=== PATIENT | female | born 1980 | race Caucasian/White ===

== ENCOUNTER → 2017-11-26 | Outpatient (CLI) | payer OTHER ==
[2017-11-29 08:55] LABS: Source VAG/CERVIX
[2017-11-29 09:27] LABS: HPV Genotype 16 Not Detected (NOTDET); HPV Genotype 18 Not Detected (NOTDET); HPV High Risk Other Not Detected (NOTDET)
== END | disposition home or self-care (01) ==
LOC: LAB 10:42 → LAB SHORT 10:42
PROVIDERS: Advanced Practice Midwife
DX: Z01.419 Encounter for gynecological examination (general) (routine) without abnormal findings (principal); Z11.3 Encounter for screening for infections with a predominantly sexual mode of transmission
CPT/HCPCS: 87491; 87591; 87624; 87661; G0123

== ENCOUNTER 2020-11-24 04:19 | Emergency (ER) | payer OTHER ==
[~2020-11-24] VITALS: Ht 170.2 cm; Wt 88.9 kg
[2020-11-24] MEDS ORDERED: EUTHYROX88 MCG PO (04:36)
== END 2020-11-24 05:24 | disposition home or self-care (01) ==
LOC: ER 04:19
DX: S01.81XA Laceration without foreign body of other part of head, initial encounter (principal); Z79.899 Other long term (current) drug therapy; Z23 Encounter for immunization; W22.8XXA Striking against or struck by other objects, initial encounter; Y92.89 Other specified places as the place of occurrence of the external cause; Y99.0 Civilian activity done for income or pay
CPT/HCPCS: 12011; 90471; 99282-25

== ENCOUNTER 2021-03-26 13:43 | Emergency (ER) | payer OTHER ==
[~2021-03-26] VITALS: Ht 167.6 cm; Wt 86.2 kg
[~2021-03-26 13:43] MED LIST: EUTHYROX88 MCG PO
[2021-03-26 14:16] LABS: BASOPHILS ABSOLUTE AUTO 0.07 K/mm3 (0.00-0.23); BASOPHILS PERCENT AUTO 1 % (0-2); EOSINOPHILS ABSOLUTE AUTO 0.23 K/mm3 (0.00-0.68); EOSINOPHILS PERCENT AUTO 2 % (0-6); Hematocrit 35.6 % (33.0-51.0); Hemoglobin 11.8 g/dL (11.5-16.0); IMMATURE GRAN ABSOLUTE AUTO 0.03 K/mm3 (0.00-0.10); IMMATURE GRAN PERCENT AUTO 0 % (0-1); LYMPHOCYTES ABSOLUTE AUTO 2.75 K/mm3 (0.84-5.20); LYMPHOCYTES PERCENT AUTO 26 % (21-46); MONOCYTES ABSOLUTE AUTO 0.93 K/mm3 (0.16-1.47); MONOCYTES PERCENT AUTO 9 % (4-13); Mean Corpuscular HGB 29.9 pg (26.0-34.0); Mean Corpuscular HGB Conc 33.1 g/dL (31.5-36.5); Mean Corpuscular Volume 90 fL (80-100); Mean Platelet Volume 9.3 fL (9.1-12.4); NEUTROPHILS ABSOLUTE AUTO 6.52 K/mm3 (1.96-9.15); NEUTROPHILS PERCENT AUTO 62 % (41-73); Platelet Count 287 K/mm3 (150-400); RDW Coefficient Variation 12.5 % (11.7-14.2); RDW Standard Deviation 41.2 fL (35.1-46.3); Red Blood Cell Count 3.95 M/mm3 (3.80-5.20); White Blood Cell Count 10.53 K/mm3 (4.00-11.30)
[2021-03-26 14:44] LABS: Alanine Aminotransfer (ALT/SGP 16 U/L (12-78); Albumin, Blood 3.7 g/dL (3.4-5.0); Alk Phos 44 U/L (50-136); Anion Gap 5 mmol/L (6-16); Aspartate Aminotrans (AST/SGOT 10 U/L (12-37); Bilirubin, Total 0.3 mg/dL (0.1-1.0); Blood Urea Nitrogen 19 mg/dL (8-24); CO2, Blood 30 mmol/L (21-32); Calcium, Blood 8.7 mg/dL (8.5-10.1); Chloride, Blood 105 mmol/L (98-108); Creatinine, Blood 0.83 mg/dL (0.40-1.00); Globulin, Blood 3.6 g/dL (2.2-4.0); Glomerular Filtration Rate >60 (60-); Glucose, Blood 79 mg/dL (70-99); Potassium, Blood 3.4 mmol/L (3.5-5.5); Sodium, Blood 140 mmol/L (136-145); Total Protein, Blood 7.3 g/dL (6.4-8.2); Troponin I <0.015 ng/mL (0.000-0.040)
== END 2021-03-26 16:41 | disposition home or self-care (01) ==
LOC: ER 13:43
PROVIDERS: Emergency Medicine
DX: R07.9 Chest pain, unspecified (principal); R20.0 Anesthesia of skin; Z79.890 Hormone replacement therapy; Z96.82 Presence of neurostimulator
CPT/HCPCS: 71046; 80053; 84484; 85025; 93005; 93010; 99285-25

== ENCOUNTER 2022-10-25 15:36 | Emergency (ER) | payer OTHER ==
[~2022-10-25] VITALS: Ht 170.2 cm; Wt 90.7 kg
[2022-10-25] MEDS ORDERED: CRUTCH4 XX (16:30)
== END 2022-10-25 16:45 | disposition home or self-care (01) ==
LOC: ER 15:36
DX: S93.402A Sprain of unspecified ligament of left ankle, initial encounter (principal); W01.0XXA Fall on same level from slipping, tripping and stumbling without subsequent striking against object, initial encounter; Z79.899 Other long term (current) drug therapy
CPT/HCPCS: 73610

== ENCOUNTER 2024-09-06 17:44 | Emergency (ER) | payer OTHER ==
[~2024-09-06] VITALS: Ht 167.6 cm; Wt 68.0 kg
[~2024-09-06 17:44] MED LIST changes: +CRUTCH4 XX
[2024-09-06 18:06] VITALS: BP 136/96
== END 2024-09-06 18:09 | disposition home or self-care (01) ==
LOC: ER 17:44
DX: M54.2 Cervicalgia (principal); E03.9 Hypothyroidism, unspecified; V89.2XXA Person injured in unspecified motor-vehicle accident, traffic, initial encounter; Z79.899 Other long term (current) drug therapy
CPT/HCPCS: 99282

== ENCOUNTER → 2024-10-13 | Outpatient (CLI) | payer OTHER ==
[2024-10-13 18:55] LABS: BASOPHILS ABSOLUTE AUTO 0.06 K/mm3 (0.00-0.23); BASOPHILS PERCENT AUTO 1 % (0-2); EOSINOPHILS ABSOLUTE AUTO 0.14 K/mm3 (0.00-0.68); EOSINOPHILS PERCENT AUTO 2 % (0-6); Hematocrit 35.3 % (33.0-51.0); Hemoglobin 11.8 g/dL (11.5-16.0); IMMATURE GRAN ABSOLUTE AUTO 0.02 K/mm3 (0.00-0.10); IMMATURE GRAN PERCENT AUTO 0 % (0-1); LYMPHOCYTES ABSOLUTE AUTO 2.74 K/mm3 (0.84-5.20); LYMPHOCYTES PERCENT AUTO 29 % (21-46); MONOCYTES ABSOLUTE AUTO 0.84 K/mm3 (0.16-1.47); MONOCYTES PERCENT AUTO 9 % (4-13); Mean Corpuscular HGB 29.2 pg (26.0-34.0); Mean Corpuscular HGB Conc 33.4 g/dL (31.5-36.5); Mean Corpuscular Volume 87 fL (80-100); Mean Platelet Volume 9.5 fL (9.1-12.4); NEUTROPHILS ABSOLUTE AUTO 5.71 K/mm3 (1.96-9.15); NEUTROPHILS PERCENT AUTO 60 % (41-73); Platelet Count 344 K/mm3 (150-400); RDW Coefficient Variation 12.7 % (11.7-14.2); RDW Standard Deviation 40.3 fL (35.1-46.3); Red Blood Cell Count 4.04 M/mm3 (3.80-5.20); White Blood Cell Count 9.51 K/mm3 (4.00-11.30)
[2024-10-13 19:15] LABS: Bun/Creatinine Ratio 29.5 (12.0-20.0); Calcium, Blood 9.5 mg/dL (8.5-10.1); Creatinine, Blood 0.68 mg/dL (0.40-1.00); Potassium, Blood 3.8 mmol/L (3.5-5.5)
== END ==
LOC: LAB SHORT 17:18 → LAB 17:18
PROVIDERS: Orthopaedic Surgery Sports Medicine
DX: Z01.812 Encounter for preprocedural laboratory examination (principal); M25.561 Pain in right knee
CPT/HCPCS: 36415; 80048; 85025

== ENCOUNTER 2024-11-08 07:31 | Day surgery (SDC) | payer OTHER ==
[~2024-11-08] VITALS: Ht 167.6 cm; Wt 99.5 kg
[~2024-11-08 07:31] MED LIST changes: +EPINEPhrine HCl 1 MG/ML 1ML Amp ONE; +LEVSOD112 PO; +Lidocaine 1%-Epineph 1:100000 20 ML MDV ONE
[2024-11-08] MEDS ORDERED: propofoL 20 ML IV ONE ×3 (07:49→09:02)
[2024-11-08] MEDS ORDERED: FentaNYL Citrate 50 MCG/ML 2 ML Injection ONE (07:49)
[2024-11-08] MEDS ORDERED: Midazolam HCl 1MG / ML 2ML Vial ONE (07:49)
[2024-11-08] MEDS ORDERED: Ketorolac Tromethamine 30mg Vial ONE (07:52)
[2024-11-08] MEDS ORDERED: Ondansetron HCl 2 MG / ML 2ML Vial ONE (07:52)
[2024-11-08] MEDS ORDERED: Dexamethasone Sod Phos 10 MG/ML 1ML VIAL ONE (07:52)
[2024-11-08] MEDS ORDERED: Bupivacaine HCl 0.25% 30 ML Injection ONE (07:53)
[2024-11-08] MEDS ORDERED: THERA-D2000 UNIT PO (08:04)
[2024-11-08] MEDS ORDERED: GABA300 PO (08:05)
[2024-11-08] MEDS ORDERED: NAPR220 PO (08:06)
[2024-11-08] MEDS ORDERED: Percocet 10-321 EACH PO (08:07)
[2024-11-08] MEDS ORDERED: ACET500 PO (08:07)
[2024-11-08] MEDS ORDERED: Percocet 5-3251 EACH PO (08:08)
[2024-11-08] MEDS ORDERED: NS 0 ML IV ONE ×3 (08:14→08:17)
[2024-11-08] MEDS ORDERED: CeFAZolin Sodium 2,000 MG VIAL ONE (08:14)
[2024-11-08] MEDS ORDERED: Lactated Ringer's 1,000 ML IV ONE ×2 (08:18→10:28)
[2024-11-08] MEDS ORDERED: Tranexamic Acid 100 ML IV ONE (08:20)
--- NOTE | 2024-11-08 08:53 | NUR ---
11/08/24 0853 JP BOWER TIMEOUT AT BEDSIDE FOR NERVE BLOCK WITH THIS RN, ANESTHESIA AND PT. SPO2 MONITORED T/O PROCEDURE, REMAINED WNL W/ PT ON 2L NC. NERVE BLOCK COMPLETED W/O COMPLICATIONS.
[2024-11-08] MEDS ORDERED: HYDROmorphone HCl/Pf 1MG SYR ONE (09:20)
--- NOTE | 2024-11-08 09:29 | NUR ---
11/08/24 0929 Elsa Crockett PT IV INFILTRATED AT INDUCTION, NEW IV PLACED BY DR. BANGURA RT AC
--- NOTE | 2024-11-08 11:12 | NUR ---
11/08/24 1112 Natalia Kulkarni PT RESTING QUIETLY IN CART W/O COMPLAINT. VSS, ON RA. PT STATES R KNEE IS SORE, DENIES NAUSEA. NO VISIBLE SIGNS OF DISTRESS NOTED.
--- NOTE | 2024-11-08 11:20 | NUR ---
11/08/24 1120 Natalia Kulkarni PT TRANSFERS TO SDU. PT DROWSY, BUT AROUSES EASILY TO NAME & FOLLOWS COMMANDS. VSS, ON RA. POLAR PACK HOOKED UP. NO VISIBLE SIGNS OF DISTRESS NOTED.
[2024-11-08] MEDS ORDERED: OxyCODONE HCL 5 MG TAB ONE (11:44)
[2024-11-08 11:52] VITALS: BP 112/83
== END 2024-11-08 12:30 | disposition home or self-care (01) ==
LOC: ORSCSDS 07:31
PROVIDERS: Orthopaedic Surgery Sports Medicine
PROC: 0SQC4ZZ Repair Right Knee Joint, Percutaneous Endoscopic Approach (ICD-10-PCS; principal; 2024-11-08 09:00)
DX: S83.241A Other tear of medial meniscus, current injury, right knee, initial encounter (principal); M76.9 Unspecified enthesopathy, lower limb, excluding foot; Z79.899 Other long term (current) drug therapy; E03.9 Hypothyroidism, unspecified; E66.9 Obesity, unspecified; Z68.33 Body mass index [BMI] 33.0-33.9, adult
CPT/HCPCS: A9270; C1713; J0171; J0690; J1100; J1171; J1885; J2250; J2405; J2704; J3010; J7040; J7120